=== PATIENT | female | born 1925 | race Caucasian/White ===

== ENCOUNTER 2016-09-10 11:00 | Emergency (ER) | payer MEDICARE, BC ==
--- NOTE | 2016-09-10 11:24 | EDM.PDOC ---
ED HISTORY OF PRESENT ILLNESS - General Chief Complaint: Respiratory Problem Stated Complaint: COUGH Time Seen by Provider: 09/10/16 11:24 Source of Information: Reports: Patient History Limitations: Reports: No limitations - History of Present Illness INITIAL COMMENTS - FREE TEXT/NARRATIVE: History of present illness: [89-year-old female presenting with complaints of cough x1 week. Patient indicates that it started right after drinking significant amount of water. Patient denies any new onset of medication or any exposures to allergens that she is aware of.] Review of systems: As per history of present illness and below otherwise all systems reviewed and negative. Past medical history: As per history of present illness and as reviewed below otherwise noncontributory. Surgical history: As per history of present illness and as reviewed below otherwise noncontributory. Social history: No reported history of drug or alcohol abuse. Family history: As per history of present illness and as reviewed below otherwise noncontributory. Physical exam: HEENT: Atraumatic, normocephalic, pupils reactive, negative for conjunctival pallor or scleral icterus, mucous membranes moist, throat clear, neck supple, nontender, trachea midline. Lungs: Clear to auscultation, breath sounds equal bilaterally, chest nontender. Heart: S1S2, regular, negative for clicks, rubs, or JVD. Abdomen: Soft, nondistended, nontender. Negative for masses or hepatosplenomegaly. Negative for costovertebral tenderness. Pelvis: Stable nontender. Genitourinary: Deferred. Rectal: Deferred. Extremities: Atraumatic, negative for cords or calf pain. Neurovascular unremarkable. Neuro: Awake, alert, oriented. Cranial nerves II through XII unremarkable. Cerebellum unremarkable. Motor and sensory unremarkable throughout. Exam nonfocal. Diagnostics: [CBC, CMP, chest x-ray] Therapeutics: [] Impression: [Cough] Plan: [Followup with ENT] Definitive disposition and diagnosis as appropriate pending reevaluation and review of above. - Related Data Allergies/ADRs: Allergies Allergy/AdvReac Type Severity Reaction Status Date / Time ticlopidine HCl [From Ticlid] Allergy Rash Verified 09/10/16 11:11 Home Meds: Home Meds Albuterol Sulfate [Proair Hfa] 8.5 gm IH ASDIRECTED PRN 06/11/15 [History] Alendronate Sodium [Alendronate] 5 mg PO DAILY 06/11/15 [History] Aspirin/Calcium Carbonate/Mag [Aspirin Buffered 325 mg Tab] 325 mg PO DAILY [History] Latanoprost [Latanoprost] 1 drop EYEBOTH DAILY 06/11/15 [History] Losartan [Cozaar] 25 mg PO DAILY 06/11/15 [History] SitaGLIPtin [Januvia] 1 tab PO DAILY 06/11/15 [History] amLODIPine Besylate [Amlodipine Besylate] 1 tab PO DAILY 06/11/15 [History] atorvaSTATin [Lipitor] 10 mg PO ONETIME 06/11/15 [History] Past Medical History HEENT History: Reports: Impaired vision Cardiovascular History: Reports: Afib, High cholesterol, Hypertension, [place], Stents Respiratory History: Reports: [employer] History: Reports: Musculoskeletal History: Reports: Osteoporosis Endocrine/Metabolic History: Reports: Diabetes, type II - Past Surgical History Cardiovascular Surgical History: Reports: Coronary artery stent GI Surgical History: Reports: Appendectomy Female Surgical History: Reports: Hysterectomy Musculoskeletal Surgical History: Reports: Knee replacement Social & Family History - Family History Family Medical History: Noncontributory - Tobacco Use Smoking Status *Q: Never Smoker Second Hand Smoke Exposure: No - Recreational Drug Use Recreational Drug Use: No ED ROS GENERAL - Review of Systems Review Of Systems: See Below (See history of present illness) ED EXAM, GENERAL - Physical Exam Exam: See Below (See history of present illness) Course - Vital Signs Last Recorded V/S: Last Vital Signs Temp 36.4 C 09/10/16 11:12 Pulse 64 09/10/16 11:12 Resp 18 09/10/16 11:12 BP 162/70 H 09/10/16 11:12 Pulse Ox 96 09/10/16 11:12 - Orders/Labs/Meds Labs: Laboratory Tests 09/10/16 09/10/16 Range/Units 11:33 11:33 WBC 6.60 (4.0-11.0) K/uL RBC 4.26 L (4.30-5.90) M/uL Hgb 12.3 (12.0-16.0) g/dL Hct 37.8 (36.0-46.0) % MCV 88.7 (80.0-98.0) fL MCH 28.9 (27.0-32.0) pg MCHC 32.5 (31.0-37.0) g/dL RDW Std Deviation 45.5 (28.0-62.0) fl RDW Coeff of Flo 14 (11.0-15.0) % Plt Count 119 L (150-400) K/uL MPV 9.80 (7.40-12.00) fL Neut % (Auto) 56.3 (48.0-80.0) % Lymph % (Auto) 29.8 (16.0-40.0) % [place] % (Auto) 11.5 (0.0-15.0) % Eos % (Auto) 2.1 (0.0-7.0) % Baso % (Auto) 0.3 (0.0-1.5) % Neut # (Auto) 3.7 (1.4-5.7) K/uL Lymph # (Auto) 2.0 (0.6-2.4) K/uL [place] # (Auto) 0.8 (0.0-0.8) K/uL Eos # (Auto) 0.1 (0.0-0.7) K/uL Baso # (Auto) 0.0 (0.0-0.1) K/uL Nucleated RBC % 0.0 /100WBC Nucleated RBCs # 0 K/uL Sodium 136 (136-146) mmol/L Potassium 4.0 (3.5-5.1) mmol/L Chloride 99 (98-110) mmol/L Carbon Dioxide 25 (21-31) mmol/L BUN 20 (6.0-23.0) mg/dL Creatinine 1.1 (0.6-1.5) mg/dL Est Cr Clr Drug Dosing 24.90 mL/min Estimated GFR (MDRD) 46.8 ml/min Glucose 165 H (60-110) mg/dL Calcium 10.5 (8.8-10.8) mg/dL Total Bilirubin 0.8 (0.1-1.5) mg/dL AST 18 (5-40) IU/L ALT 17 (8-54) IU/L Alkaline Phosphatase 61 (40-150) Total Protein 6.8 (6.0-8.0) g/dL Albumin 3.9 (3.4-4.8) g/dL Globulin 2.9 (2.0-3.5) g/dL Albumin/Globulin Ratio 1.3 (1.3-2.8) Departure - Departure Time of Disposition: 12:43 Disposition: Home, Self-Care 01 Condition: good Clinical Impression: Cough Forms: ED Department Discharge Additional Instructions: The following information is given to patients seen in the emergency department who are being discharged to home. This information is to outline your options for follow-up care. We provide all patients seen in our emergency department with a follow-up referral. The need for follow-up, as well as the timing and circumstances, are variable depending upon the specifics of your emergency department visit. If you don't have a primary care physician on staff, we will provide you with a referral. We always advise you to contact your personal physician following an emergency department visit to inform them of the circumstance of the visit and for follow-up with them and/or the need for any referrals to a consulting specialist. The emergency department will also refer you to a specialist when appropriate. This referral assures that you have the opportunity for follow-up care with a specialist. All of these measure are taken in an effort to provide you with optimal care, which includes your follow-up. Under all circumstances we always encourage you to contact your private physician who remains a resource for coordinating your care. When calling for follow-up care, please make the office aware that this follow-up is from your recent emergency room visit. If for any reason you are refused follow-up, please contact the [facility] Emergency Department at and asked to speak to the emergency department charge nurse. All with primary care provider one to 2 days You have been given referral to nose and throat for further evaluation of chronic cough Return to ED as needed as discussed [facility] - ENT [address] [place] [id number]
--- NOTE | 2016-09-10 12:19 | CR ---
EXAMINATION: Two-view chest (PA and Lateral views). HISTORY: Cough. FINDINGS: The trachea is midline. The cardiomediastinal silhouette is within normal limits. No pulmonary infil trates, effusions or pneumothorax. Aortic calcifications are noted. The shoulders are high riding suggesting underlying rotator cuff arthropathy. Otherwise the osseous structures appear osteopenic with moderate thoracic kyphosis. IMPRESSION: No acute cardiopulmonary process.
[2016-09-10 18:33] VITALS: BP 153/68
== END 2016-09-10 13:00 | disposition home or self-care (01) ==
LOC: MW.ED 11:00
DX: R05 Cough (principal); I48.91 Unspecified atrial fibrillation; E78.00 Pure hypercholesterolemia, unspecified; I10 Essential (primary) hypertension; I25.2 Old myocardial infarction; E11.9 Type 2 diabetes mellitus without complications; Z88.8 Allergy status to other drugs, medicaments and biological substances; Z79.82 Long term (current) use of aspirin; Z79.899 Other long term (current) drug therapy; Z90.49 Acquired absence of other specified parts of digestive tract; Z90.710 Acquired absence of both cervix and uterus
CPT/HCPCS: 36415; 71020; 71020-26; 80053; 85025; 99282; 99283